=== PATIENT | female | born 1955 | race Caucasian/White ===

== ENCOUNTER 2016-07-04 14:22 | Outpatient (RCR) | payer BC | END 2016-09-07 11:56 | disposition home or self-care (01) | LOC: PT 14:22 | DX: M54.5 Low back pain (principal) ==

== ENCOUNTER → 2020-06-08 | Outpatient (CLI) | payer BC | LOC: MAMMO 13:43 | DX: Z12.31 Encounter for screening mammogram for malignant neoplasm of breast (principal) ==

== ENCOUNTER → 2024-04-01 | Outpatient (CLI) | payer MEDICARE, BC | LOC: RAD 13:49 | DX: M17.12 Unilateral primary osteoarthritis, left knee (principal) ==